=== PATIENT | female | born 1950 | race Caucasian/White ===

== ENCOUNTER 2017-10-23 16:00 | Outpatient (CLI) | payer MEDICARE, MEDICAID ==
[2017-10-23 16:37] LABS: Hemoglobin 13.1 g/dL (12.0-16.0); Mean Corpuscular HGB CONC 33.5 g/dL (32.0-36.0); Mean Corpuscular Hemoglobin 29.4 pg (27.0-31.0); Mean Corpuscular Volume 87.8 fl (81.0-99.0); Mean Platelet Volume 7.6 fL (7.4-10.4); Platelet Count 229 thou/uL (130-400); Red Blood Cell (RBC) Count 4.47 mill/uL (4.20-5.40); White Blood Cell (WBC) Count 8.2 thou/uL (4.8-10.8)
--- NOTE | 2017-10-23 16:52 | RAD ---
CHEST TWO VIEWS: 10/23/17 HISTORY: Preoperative exam. COMPARISON: None. FINDINGS: Normal cardiac silhouette. The pulmonary vessels and pulmonary hilum are normal. Costophrenic angles are clear. No consolidation or mass. No pneumothorax or osseous abnormality. IMPRESSION: No acute cardiopulmonary process. POS: [facility]
[2017-10-23 16:56] LABS: Anion Gap 13 mmol/L (10-20); BUN (Urea Nitrogen) 14 mg/dL (9.8-20.1); Calc. Creatinine Clearance 0 mL/min (70-130); Calcium 9.9 mg/dL (7.8-10.44); Carbon Dioxide 27 mmol/L (23-31); Chloride 102 mmol/L (98-107); Estimated GFR-MDRD 62; Glucose 235 mg/dL (80-115); Potassium 4.5 mmol/L (3.5-5.1); Sodium 137 mmol/L (136-145)
== END 2017-10-23 16:01 | disposition home or self-care (01) ==
LOC: LABBT 16:00
PROVIDERS: ATTEND Obstetrics & Gynecology
DX: Z01.818 Encounter for other preprocedural examination (principal); N85.00 Endometrial hyperplasia, unspecified; N95.0 Postmenopausal bleeding
CPT/HCPCS: 71046; 80048; 85027; 86850; 86900; 86901; 93005; 93010

== ENCOUNTER 2017-10-26 07:15 | Day surgery (SDC) | payer MEDICARE, MEDICAID ==
[2017-10-23 16:25] VITALS: BMI 33.7
[2017-10-26] MEDS ORDERED: Famotidine/PF 20 mg/2ml Vial ONE (09:52)
[2017-10-26] MEDS ORDERED: Fentanyl 100 MCG/2 ML VIAL ONE (09:52)
[2017-10-26] MEDS ORDERED: Bupivacaine HCl 0.5%/Epinephrine 1:200,000/PF 30 ml Vial ONE (09:59)
[2017-10-26] MEDS ORDERED: Ondansetron ODT 4 MG TAB ONE (10:06)
[2017-10-26] MEDS ORDERED: Midazolam HCl 2 mg/2 ml Vial ONE (10:06)
[2017-10-26] MEDS ORDERED: ePHEDrine/0.9% NaCl/PF SYRINGE 50 mg/10 ml ONE (14:02)
[2017-10-26] MEDS ORDERED: Lidocaine 1% PF 5 ML VIAL ONE (14:02)
[2017-10-26] MEDS ORDERED: Ketorolac Tromethamine 30 MG/ML VIAL ONE (14:02)
[2017-10-26] MEDS ORDERED: PROPOFOL 200 MG/20 ML VIAL ONE (14:02)
[2017-10-26] MEDS ORDERED: Dexamethasone 20 MG/5 ML VIAL ONE ×2 (14:02)
[2017-10-26] MEDS ORDERED: Glycopyrrolate 0.2 MG/ML 5 ML SYRINGE ONE (14:02)
--- NOTE | 2017-10-26 14:14 | DIS ---
See history and physical and operative notes, pathology reports for further details. REASON FOR ADMISSION: The patient came in for a 1 year long menopausal bleeding that had varied from spotting to shavon bleeding. She finally had a sonogram which showed an endometrial lining of anywhe re from 1-1/2 to 2 cm depending on the 2 ultrasounds that were done. There was no definite evidence of a fibroid on our ultrasound. She was scheduled as a hysteroscopic resection of polyps or fibroids if found and a D&C if not. HOSPITAL COURSE: Basically on 10/26/2017 the patient underwent a LMA general anesthetic and had a hy steroscopic resection of both a large polyp and a fundal submucosal fibroid. The procedure was a little longer than usual because of the size of the 2 problems and the Truclear d evice was relatively slow in removing them, it took 10 minutes and there was about a 300 mL fluid def icit which was not large and her blood loss was next to nothing probably less than 50 mL at most. Beck thology was submitted and is pending. Postoperatively, she did well. Her bleeding was minimal. She had no unusual pain. Within approxima tely two and a half hours after the procedure she was discharged in good condition. Her preoperative laboratory was unremarkable as was her chest x-ray and EKG. Her blood sugar on admi ssion by Accu-Chek was 164 and she has known diabetes on metformin, atorvastatin, carvedilol 25 mg, g abapentin 300 mg, thyroid 50 mcg, lisinopril 10 mg and sertraline 100 mg. She will go home on the [facility] medications. IMPRESSION AND FINAL DIAGNOSES: Endometrial hyperplasia on prior biopsy, probable benign polyp and b enign fibroid, but pathology is pending, obesity, diabetes, and hypertension as well as chronic anxie ty and depression. PLAN: Discharge the patient home on her usual medications. She has been given warnings and instruct ions regarding postoperative care and reasons to call for help. She also has phone numbers to call a nd a video photograph of her pathology. She will follow up in 2 weeks for which she has already made that appointment with Dr. Sergei Guadalupe.
--- NOTE | 2017-10-26 14:47 | OP ---
PREOPERATIVE DIAGNOSES: One-year long postmenopausal bleeding with simple hyperplasia on previous bi opsy, suspected polyp. POSTOPERATIVE DIAGNOSES: One-year long postmenopausal bleeding with simple hyperplasia on previous b iopsy, suspected polyp, moderate-sized endometrial polyp as well as what appeared to be an adherent s ubmucosal fibroid in the fundus of the uterus. PROCEDURE: Hysteroscopic resection of these 2 intrauterine masses. OPERATIVE COMPLICATIONS: None. BLOOD LOSS: Less than 50 mL. The fluid deficit on the normal saline, hysteroscopic fluid was 216 mL. Her resection time was 9 min utes and 56 seconds. We used the TruClear incisor. OPERATIVE PROCEDURE: The patient was taken to the operating room where she had been given a general anesthetic for LMA and was placed in lithotomy position. She was prepped and draped in the usual fashion and exam under anesthesia was followed by placing a b theresealve Graves speculum in the vagina. The cervix was grasped with a single-tooth tenaculum and the cervix was dilated with dilators up to a size 15 Prasanna dilator. A 0-degree TruClear hysteroscope was used to visualize the pathology in the p kalin. At this point, the TruClear incisor device, a smaller one was used to place this through the hysteroscope and then for almost 10 minutes resection of both of these masses was performed. There w as minimal bleeding and this was checked with a low volume pressures. Afterwards there appeared to b e almost none. The tenaculum sites were not bleeding afterwards and the patient was taken to the rec overy room having tolerated the procedure and anesthesia well. The tissue was sent to pathology.
== END 2017-10-26 13:10 | disposition home or self-care (01) ==
LOC: SDC 07:15
PROVIDERS: ATTEND Obstetrics & Gynecology
PROC: 0UB98ZX Excision of Uterus, Via Natural or Artificial Opening Endoscopic, Diagnostic (ICD-10-PCS; principal; 2017-10-26)
DX: N85.00 Endometrial hyperplasia, unspecified (principal); E78.5 Hyperlipidemia, unspecified; E11.9 Type 2 diabetes mellitus without complications; E07.9 Disorder of thyroid, unspecified; F41.9 Anxiety disorder, unspecified; Z88.5 Allergy status to narcotic agent; Z88.8 Allergy status to other drugs, medicaments and biological substances; Z98.890 Other specified postprocedural states
CPT/HCPCS: 36416; 88305; J0131; J0670; J1100; J1885; J2001; J2250; J2704; J3010; Q0162; S0028

== ENCOUNTER 2018-01-05 14:42 | Outpatient (CLI) | payer MEDICAID, MEDICARE | END 2018-01-05 14:43 | disposition home or self-care (01) | LOC: BICMAMMO 14:42 | PROVIDERS: ATTEND Nurse Practitioner Family | DX: R92.8 Other abnormal and inconclusive findings on diagnostic imaging of breast (principal); Z80.3 Family history of malignant neoplasm of breast | CPT/HCPCS: 77066; G0279 ==

== ENCOUNTER 2019-03-24 11:33 | Outpatient (CLI) | payer MEDICARE ==
--- NOTE | 2019-03-24 12:35 | MMO ---
Bilateral MAMMO Bilat Screen [facility]. CLINICAL HISTORY: Patient is 68 years old and is seen for screening. The patient has no personal history of cancer. The patient has a history of left Ultrasound Guided Core Biopsy in July, - benign. VIEWS: The views performed were: bilateral craniocaudal with tomosynthesis and bilateral mediolateral oblique with tomosynthesis. FILMS COMPARED: The present examination has been compared to prior imaging studies performed at [facility] on 07/14/2015, 07/20/2015, 01/14/2016 and 01/05/2018. This study has been interpreted with the assistance of computer-aided detection. MAMMOGRAM FINDINGS: The breasts are heterogeneously dense, which could obscure a lesion on mammography. There are stable benign appearing calcifications seen in both breasts. A biopsy clip is seen in the left breast. There are no suspicious masses, suspicious calcifications, or new areas of architectural distortion. IMPRESSION: THERE IS NO MAMMOGRAPHIC EVIDENCE OF MALIGNANCY. A ROUTINE FOLLOW-UP MAMMOGRAM IN 1 YEAR IS RECOMMENDED. THE RESULTS OF THIS EXAM WERE SENT TO THE PATIENT. ACR BI-RADS Category 2 - Benign finding MAMMOGRAPHY NOTE: 1. A negative mammogram report should not delay a biopsy if a dominant of clinically suspicious mass is present. 2. Approximately 10% to 15% of breast cancers are not detected by mammography. 3. Adenosis and dense breasts may obscure an underlying neoplasm. Reported by: NEGRITA NASCIMENTO MD Electonically Signed: [id number]
== END 2019-03-24 11:34 | disposition home or self-care (01) ==
LOC: BICMAMMO 11:33
PROVIDERS: ATTEND Nurse Practitioner Family
DX: Z12.31 Encounter for screening mammogram for malignant neoplasm of breast (principal)
CPT/HCPCS: 77063; 77067

== ENCOUNTER 2020-04-06 09:52 | Outpatient (CLI) | payer MEDICARE ==
--- NOTE | 2020-04-06 14:13 | ULT ---
EXAM: US Breast Limited Rt DATE: 04/06/2020 12:00 AM INDICATION: Mild inversion of the right nipple COMPARISON: Diagnostic mammogram dated April 06, 2020 FINDING: No suspicious retroareolar mass is evident. No abnormal ductal dilatation is grossly eviden t. IMPRESSION:BI-RADS Category 2-benign. No suspicious sonographic abnormalities seen within the retroar eolar right breast explain the patient's mild right nipple inversion. Will refer this patient back to the ordering clinician. Negative imaging should never deter biopsy if findings on clinical exam ar e suspicious. BI-RADS 2 -- benign findings
== END 2020-04-06 09:53 | disposition home or self-care (01) ==
LOC: BICMAMMO 09:52
PROVIDERS: ATTEND Nurse Practitioner Family
DX: N64.59 Other signs and symptoms in breast (principal)

== ENCOUNTER 2020-04-06 13:01 | Outpatient (CLI) | payer MEDICARE ==
--- NOTE | 2020-04-06 14:10 | MMO ---
Bilateral MAMMO Bilat Diag [facility]. CLINICAL HISTORY: Patient is 69 years old and is seen for diagnostic exam and nipple abnormality in the right breast. The patient has the following family history of breast cancer: 1aternal grandmother. The patient has no personal history of cancer. The patient has a history of left Ultrasound Guided Core Biopsy in July, - benign. VIEWS: The views performed were: bilateral craniocaudal with tomosynthesis; bilateral mediolateral oblique with tomosynthesis; bilateral mediolateral with tomosynthesis; right craniocaudal spot compression with tomosynthesis; and right mediolateral spot compression with tomosynthesis. FILMS COMPARED: The present examination has been compared to prior imaging studies performed at [facility] on 01/14/2016, 01/05/2018, 03/24/2019 and 04/06/2020. This study has been interpreted with the assistance of computer-aided detection. MAMMOGRAM FINDINGS: The breasts are heterogeneously dense, which could obscure a lesion on mammography. There are calcifications seen in both breasts. No suspicious mass seen mammographically or sonographically in the retroareolar right breast to explain the patients recent mild right nipple inversion. The right nipple profile on the mammogram appears similar to priors. There are no suspicious masses, suspicious calcifications, or new areas of architectural distortion. IMPRESSION: THERE IS NO MAMMOGRAPHIC EVIDENCE OF MALIGNANCY. NO MAMMOGRAPHIC OR SONOGRAPHIC ABNORMALITIES ARE PRESENT TO CORRELATE WITH THE SITE OF CONCERN. THE PATIENT WILL BE REFERRED BACK TO HER CLINICIAN FOR FURTHER CARE. BIOPSY SHOULD NOT BE PRECLUDED BY THE ABSCENCE OF IMAGING FINDINGS, IN THE SETTING OF CLINICAL CONCERN FOR MALIGNANCY. A ROUTINE FOLLOW-UP MAMMOGRAM IN 1 YEAR IS RECOMMENDED. THE RESULTS OF THIS EXAM WERE SENT TO THE PATIENT. ACR BI-RADS Category 2 - Benign finding MAMMOGRAPHY NOTE: 1. A negative mammogram report should not delay a biopsy if a dominant of clinically suspicious mass is present. 2. Approximately 10% to 15% of breast cancers are not detected by mammography. 3. Adenosis and dense breasts may obscure an underlying neoplasm. Reported by: VIRIDIANA CALIXTO MD Electonically Signed: [id number]
== END 2020-04-06 13:02 | disposition home or self-care (01) ==
LOC: BICMAMMO 13:01
PROVIDERS: ATTEND Nurse Practitioner Family
DX: N64.59 Other signs and symptoms in breast (principal)
CPT/HCPCS: 77066; G0279